=== PATIENT | female | born 1935 | race Caucasian/White ===

== ENCOUNTER → 2016-12-23 | Day surgery (SDC) | payer MEDICARE, OTHER ==
[~2016-12-23] MED LIST: ACETAMINOPHEN/HYDROcodone 325 MG/7.5 MG TAB ONE; BRIM.2%O OU; LACTATED RINGER'S 1000 ML INJ 1,000 ML ONE; MORPHINE SULFATE 4 MG/ML INJ ONE; PROPOFOL 200 MG/20 ML AMP IV ONE; VANCOMYCIN 500 MG VIAL ONE
--- NOTE | 2017-01-08 07:31 | TN ---
cc: AMOL THEODORE MD This is a repeat operative dictation. DATE OF SURGERY 12/23/2016 ATTENDING PHYSICIAN/SURGEON Amol Theodore MD PREOPERATIVE DIAGNOSIS Right knee medial and lateral meniscus tear. POSTOPERATIVE DIAGNOSIS Right knee medial and lateral meniscus tear. PROCEDURE Right knee arthroscopy with partial medial and lateral meniscectomy. PROCEDURE IN DETAIL Informed consent was obtained. The patient taken to the operating room and placed in the supine position on the operating room table. She was administered a general anesthesia by the anesthesiologist. She was given a gram of Ancef prior to the initiation of the operative procedure. At that time, a tourniquet was applied to the right thigh. The right leg was prepped with Betadine soap followed by Betadine paint. Draping commenced in standard fashion with sterile down sheets, sterile U-draped, sterile stockinette was applied to the foot and calf and extremity drape was applied. The leg was elevated. A time-out was held and confirmed. At that time, the tourniquet inflated to 300 mmHg. The leg was allowed to flex over the side of the operating table. An 18 gauge spinal needle was placed in the region of the medial infrapatellar portal and this region was infiltrated with 4 cc of 0.25% Marcaine with epinephrine. Infiltration was performed into the lateral infrapatellar portal and the transpatellar tendon portal region as well. A small incision was made in the region of the transpatellar tendon portal and an inflow cannula was placed. A second incision was placed in the region of the lateral infrapatellar and the arthroscopic cannula was placed. Diagnostic arthroscopy commenced. The medial compartment was examined. 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 There were lesser changes noted on the medial tibial plateau. As the knee was brought into abduction external rotation against the side post on the OR table, the posterior portion of the medial meniscus was observed and there was a complex degenerative type tear seen. A medial portal was established. This area was probed and then debrided with basket forceps and the [place] meniscal shaver. At that time, the leg was placed in figure four position. A scope was placed in the lateral compartment. A complex degenerative tear of the lateral meniscus was seen mostly involving zones 5 and 6 of the lateral meniscus. The popliteus tendon was intact. The soft tissue bridge over the front of the popliteus tendon was intact. Utilizing basket forceps and [employer] meniscal shaver, this portion was debrided. There were mild chondromalacia changes noted on the lateral femoral condyle. The scope was then placed in the intercondylar notch as the leg was again flexed and the anterior and posterior cruciate ligaments were examined and these appeared normal. The scope was placed in the posterior medial and posterolateral compartments. These appeared normal. The scope was placed in the suprapatellar pouch which appeared normal. The undersurface of the patella and trochlear groove both demonstrated grade 2 chondromalacia changes. There were no pathologic plica seen. At that time, the knee was thoroughly irrigated and suctioned. All cannulas were removed. Each portal was closed with a single 4-0 nylon interrupted stitch. Band-Aids, 4x4s, Sof-Rol and Kelvin wrap were applied to the patient's knee. The patient tolerated the procedure well and was then taken to recovery room in stable condition. At the completion of the procedure, sponge count, instrument counts, and needle counts were correct. Estimated blood loss was less than 10 cc. MD EDISON Lazo/PETERSON /4:09 PM /7:13 AM
== END | disposition home or self-care (01) ==
LOC: ESDC 11:08
PROVIDERS: ATTEND Orthopaedic Surgery
DX: S83.241A Other tear of medial meniscus, current injury, right knee, initial encounter (principal); S83.281A Other tear of lateral meniscus, current injury, right knee, initial encounter
CPT/HCPCS: 01400; 29880; J2270; J3010; J3370; J7120